=== PATIENT | male | born 1960 | race African-American/Black ===

== ENCOUNTER 2020-02-18 09:14 | Emergency (ER) | payer OTHER ==
[~2020-02-18] VITALS: Ht 175.3 cm; Wt 88.0 kg
[2020-02-18 11:38] VITALS: BP 163/97
== END 2020-02-18 11:40 | disposition home or self-care (01) ==
LOC: ER 09:14
DX: R04.0 Epistaxis (principal); I10 Essential (primary) hypertension; Z79.82 Long term (current) use of aspirin; Z91.013 Allergy to seafood; Z88.8 Allergy status to other drugs, medicaments and biological substances
CPT/HCPCS: 99282